=== PATIENT | female | born 1970 | race African-American/Black ===

== ENCOUNTER 2025-02-24 13:50 | Emergency (ER) | payer SELFPAY ==
[2025-02-24] VITALS (19 sets, daily range): BP systolic 150–203; BP diastolic 87–110; PULSE 100–137; RESP 14–27; TEMP 36.6; O2SAT 94–100
--- NOTE | ~2025-02-24 | CT_ITS ---
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 The dose-length product was 556.76 mGy-cm. Maximum intensity projection 3D-reconstructions of the aorta and other arteries were constructed by the technologist on a separate workstation. COMPARISON: None. FINDINGS: No significant pleural or pericardial effusion. Borderline heart size. No thoracic lymphadenopathy. Study is limited due to motion artifact. No large central pulmonary embolism. Evaluation of peripheral pulmonary arteries limited by motion and contrast bolus timing. No endobronchial lesions. Dependent atelectasis. No pneumothorax. No evidence for aortic aneurysm or dissection. Fatty infiltration of the liver. IMPRESSION: 1. No acute cardiopulmonary disease. No large central pulmonary embolism. Evaluation of peripheral pulmonary arteries limited by motion and contrast bolus timing. Reviewed, dictated and finalized at location O. LE LOOM OPERATOR HELPER IMPRESSION: 1. No acute cardiopulmonary disease. No large central pulmonary embolism. Evalu ation of peripheral pulmonary arteries limited by motion and contrast bolus diana ing.
--- OUTSIDE RECORDS SUMMARY | 2025-02-24 16:52 | XMS_ITS ---
Author Organization Unknown ENCOUNTERS Encounter Performer Location Date Diagnosis Diagnosis Status Emergency [facility] [address] [place] [address] [id number] Pre Admit [facility] [address] [place] [address] [phone] *Note: Encounters from your own facility or health system may be excluded. Allergies, Adverse Reactions, Alerts Allergen Type Severity Identification Date Medications Name Date Quantity Days Supplied GPI Number
[2025-02-24 17:12] LABS: Hematocrit 47.0 % (37.0-47.0); Hemoglobin 15.3 g/dL (12.0-15.0); Immature Granulocyte Percent A 0.3 % (0-0.5); Lymphocytes Absolute Auto 3.05 K/mm3 (0.9-3.2); Mean Corpuscular HGB Conc 32.6 g/dl (32-36); Mean Corpuscular Hemoglobin 25.2 pg (26-34); Mean Corpuscular Volume 77.3 fl (80-100); Nucleated Red Blood Cells Absolute Auto 0.000 K/mm3 (0.0-0.012); Nucleated Red Blood Cells Perc 0.0 % (0.0-0.2); Platelet Count Result 347 k/mm3 (150-375); Red Blood Count 6.08 M/mm3 (4.2-5.4); White Blood Count 9.2 K/mm3 (4.5-10.0)
[2025-02-24 17:19] LABS: Add Urine Microscopic? YES; Appearance Urine Clear (Clear); Glucose Urine UA Negative (Negative); Leukocyte Esterase Ur Trace LEU/UL (Negative); Nitrate Urine Negative (Negative); Non Pathogenic Casts 0-2; Specific Grav Ur 1.006 (1.001-1.035)
[2025-02-24 17:23] LABS: Alanine Aminotransferase 41 U/L (6-35); Albumin Level 5.0 g/dL (3.5-5.1); Alkaline Phosphatase 105 U/L (38-126); Anion Gap 12 mmol/L (4-12); Aspartate Amino Transferase 38 U/L (14-36); Bilirubin,Total 0.7 mg/dL (0.2-1.3); Blood Urea Nitrogen 8 mg/dL (7-17); Calcium 10.6 mg/dL (8.4-10.2); Carbon Dioxide 25 mmol/L (22-30); Chloride 100 mmol/L (98-107); Estimated CRCL calculation 74 ml/min; Estimated Glomerular Filt Rate > 60; Glucose 132 mg/dL (65-110); Magnesium 2.2 mg/dL (1.6-2.3); Potassium 4.5 mmol/L (3.4-5.0); Sodium 137 mmol/L (137-145); Total Protein 10.3 g/dL (6.3-8.2)
[2025-02-24 17:50] LABS: Influenza A QL RT-PCR Negative (Negative); Influenza B QL RT-PCR Negative (Negative); RSV RNA, RT-PCR Negative (Negative); SARS-CoV-2 RNA PCR Negative (Negative)
--- NOTE | 2025-02-24 18:23 | ED_ITS ---
HPI - General Adult General Chief complaint: Recheck/Abnormal Lab/Rx <Easton Wharton MD - Last Filed: 02/24/25 20:11> Stated complaint: HTN, lEG PAIN <Easton Wharton MD - Last Filed: 02/24/25 20:11> Time Seen by Provider: 02/24/25 15:59 <Easton Wharton MD - Last Filed: 02/24/25 20:11> History of Present Illness HPI narrative: Patient is a 54-year-old female who presents ER with some leg weakness. His been intermittent over last week. She will be walking and she just feels like her legs are weak. She suspects it may be related to elevated blood pressures. Her blood pressures been 160 mmHg systolic. No chest pain. No fevers chills or sweats. No exertional dyspnea. Denies runny nose or sore throat or productive cough. No known sick contacts. She has no low back pain. No numbness in the lower extremities. No pain in lower extremities. Son is interpreting for the patient. Patient takes amlodipine, HCTZ, lisinopril < Easton Wharton MD - Last Filed: 02/24/25 20:11> Related Data Allergies/adverse reactions: Allergies Allergy/AdvReac Type Severity Reaction Status Date / Time No Known Allergies Allergy Verified 02/24/25 13:57 <Easton Wharton MD - Last Filed: 02/24/25 20:11> Review of Systems 2 Review of Systems: All systems reviewed & are unremarkable except as noted in HPI and below <Easton Wharton MD - Last Filed: 02/24/25 20:11> Constitutional: Constitutional: Reports no additional constitutional complaints <Easton Wharton MD - Last Filed: 02/24/25 20:11> Cardiovascular: Cardiovascular: Reports no additional cardiovascular complaints <Easton Wharton MD - Last Filed: 02/24/25 20:11> Respiratory: Respiratory: Reports no additional respiratory complaints < Easton Wharton MD - Last Filed: 02/24/25 20:11> Gastrointestinal: Gastrointestinal: Reports no additional gastrointestinal complaints <Easton Wharton MD - Last Filed: 02/24/25 20:11> Genitourinary: Genitourinary: Reports no additional female genitourinary complaints <Easton Wharton MD - Last Filed: 02/24/25 20:11> Neurologic: Reports system reviewed and no additional complaints, except as documented <Easton Wharton MD - Last Filed: 02/24/25 20:11> [facility] Past Medical History Medical History: Medical History (Updated 02/24/25 @ 23:29 by Froy Voss MD) Hypertension <Easton Wharton MD - Last Filed: 02/24/25 20:11> Surgical History Surgical History: Surgical History (Updated 02/24/25 @ 18:30 by Easton Wharton MD) No history of previous surgery <Easton Wharton MD - Last Filed: 02/24/25 20:11> Exam 2 Narrative: GENERAL: Well-appearing, well-nourished, and in no acute distress. HEAD: Normocephalic, atraumatic. ENT: Mucous membranes moist. CHEST: Clear to auscultation. No respiratory distress. HEART: Tachycardic and regular. Normal peripheral pulses. ABDOMEN: Soft, nontender, nondistended. EXTREMITIES: Normal range of motion. No edema. SKIN: Warm, dry, no rash. NEURO: Alert and oriented x3. PSYCH: Normal mood and affect. <Easton Wharton MD - Last Filed: 02/24/25 20:11> Course Course Emergency Course: Patient resting comfortably. Informed of blood/urine/viral swab results. Essentially unremarkable. Patient with some mild tachycardia (103 bpm) will receive IV fluid. She has no chest discomfort or palpitations. No pain with deep breath. There is no leg swelling to indicate DVT. Hemoglobin is slightly elevated which could indicate dehydration. 1851: Patient is with sudden onset feeling of leg heaviness. Blood pressure 196/98 mmHg. She also feels like her heart is racing in her heart rate is elevated to 130 beats per minute though it is a sinus rhythm. We will give her some hydralazine for her blood pressure. GABRIELLA to Dr. Voss. <Easton Wharton MD - Last Filed: 02/24/25 20:11> Patient resting comfortably. Informed of blood/urine/viral swab results. Essentially unremarkable. Patient with some mild tachycardia (103 bpm) will receive IV fluid. She has no chest discomfort or palpitations. No pain with deep breath. There is no leg swelling to indicate DVT. Hemoglobin is slightly elevated which could indicate dehydration. 1851: Patient is with sudden onset feeling of leg heaviness. Blood pressure 196/98 mmHg. She also feels like her heart is racing in her heart rate is elevated to 130 beats per minute though it is a sinus rhythm. We will give her some hydralazine for her blood pressure. GABRIELLA to Dr. Voss. Patient signed out to me pending CTA and re-evaluation. CTA is negative for pulmonary embolism pneumothorax or infiltrate as read by Radiology. Patient's heart rate has improved after further IV fluids. She is persistently however in the 100-110. She is in sinus rhythm. Patient denies any weakness, she is neurologically intact. She is requesting to go home, I did recommend hospital admission given the concern for weakness and tachycardia of unclear etiology. I did spend significant time at bedside with the patient and her adult son, expressed my concern answered their questions but they still would like to go home and they will follow up with primary care doctor although the patient is new to the area does not have any establish care. I again expressed my concern with this plan and ultimately she has capacity to make her own decisions and is discharged against medical advice. I instructed her nurse under returns today changed her mind or develops any new or concerning symptoms return immediately for re-evaluation. Otherwise all questions answered discharged in improved condition but serious condition <Froy Voss MD - Last Filed: 02/24/25 23:31> Vital Signs Vital signs: Vital Signs Temperature 36.6 C 02/24/25 13:54 Pulse Rate 121 H 02/24/25 13:54 Respiratory Rate 20 02/24/25 13:54 Blood Pressure 150/100 H 02/24/25 13:54 Pulse Oximetry 100 02/24/25 13:54 Oxygen Delivery Room Air 02/24/25 13:54 Temperature 36.6 C 02/24/25 19:08 Pulse Rate 113 H 02/24/25 21:31 Respiratory Rate 20 02/24/25 21:31 Blood Pressure 151/89 H 02/24/25 21:31 Pulse Oximetry 100 02/24/25 21:31 Oxygen Delivery Room Air 02/24/25 13:54 <Easton Wharton MD - Last Filed: 02/24/25 20:11> Vital Signs Temperature 36.6 C 02/24/25 13:54 Pulse Rate 121 H 02/24/25 13:54 Respiratory Rate 20 02/24/25 13:54 Blood Pressure 150/100 H 02/24/25 13:54 Pulse Oximetry 100 02/24/25 13:54 Oxygen Delivery Room Air 02/24/25 13:54 Temperature 36.6 C 02/24/25 19:08 Pulse Rate 113 H 02/24/25 21:31 Respiratory Rate 20 02/24/25 21:31 Blood Pressure 151/89 H 02/24/25 21:31 Pulse Oximetry 100 02/24/25 21:31 Oxygen Delivery Room Air 02/24/25 13:54 <Froy Voss MD - Last Filed: 02/24/25 23:31> MDM Differential Diagnosis Differential Diagnosis: Dehydration, MJ, sciatica, viral syndrome <Easton Wharton MD - Last Filed: 02/24/25 20:11> Lab Data MDM Lab Attestation statement: I personally reviewed the patient's lab results. <Easton Wharton MD - Last Filed: 02/24/25 20:11> Result diagrams: 02/24/25 17:02 02/24/25 17:02 <Easton Wharton MD - Last Filed: 02/24/25 20:11> Labs: Lab Results 02/24/25 Range/Units 17:02 WBC 9.2 (4.5-10.0) K/mm3 RBC 6.08 H (4.2-5.4) M/mm3 Hgb 15.3 H (12.0-15.0) g/dL Hct 47.0 (37.0-47.0) % MCV 77.3 L (80-100) fl MCH 25.2 L (26-34) pg MCHC 32.6 (32-36) g/dl RDW 14.8 H (11.5-14.5) % Plt Count 347 (150-375) k/mm3 MPV 9.4 (7.4-10.4) fl Immature Gran % (Auto) 0.3 (0-0.5) % Neut % (Auto) 58.2 (45.5-73.1) % Lymph % (Auto) 33.2 (18.3-44.2) % [place] % (Auto) 7.8 (2.6-8.5) % Eos % (Auto) 0.3 (0-4.4) % Baso % (Auto) 0.2 (0.2-1.2) % Lymph # (Auto) 3.05 (0.9-3.2) K/mm3 [place] # (Auto) 0.7 H (0.1-0.6) K/mm3 Eos # (Auto) 0.0 (0-0.3) K/mm3 Baso # (Auto) 0.0 (0.0-0.1) K/mm3 Abs Immat Gran (auto) 0.03 (0.00-0.031) K/mm3 Absolute Neuts (auto) 5.3 (1.3-6.7) K/mm3 Absolute Nucleated RBC 0.000 (0.0-0.012) K/mm3 Nucleated RBC % 0.0 (0.0-0.2) % Sodium 137 (137-145) mmol/L Potassium 4.5 (3.4-5.0) mmol/L Chloride 100 (98-107) mmol/L Carbon Dioxide 25 (22-30) mmol/L Anion Gap 12 (4-12) mmol/L BUN 8 (7-17) mg/dL Creatinine 0.75 (0.7-1.0) mg/dL Estim Creat Clear Calc 74 ml/min Estimated GFR > 60 (59 - ) Glucose 132 H (65-110) mg/dL Calcium 10.6 H (8.4-10.2) mg/dL Magnesium 2.2 (1.6-2.3) mg/dL Total Bilirubin 0.7 (0.2-1.3) mg/dL AST 38 H (14-36) U/L ALT 41 H (6-35) U/L Alkaline Phosphatase 105 (38-126) U/L Total Protein 10.3 H (6.3-8.2) g/dL Albumin 5.0 (3.5-5.1) g/dL TSH (Reflex) 1.730 (0.465-4.68) uIU/mL Urine Color Yellow (Yellow) Urine Appearance Clear (Clear) Urine pH 7.0 (5.0-9.0) Ur Specific [place] 1.006 (1.001-1.035) Urine Protein Negative (Negative) mg/dL Urine Glucose (UA) Negative (Negative) mg/dL Urine Ketones Negative (Negative) mg/dL Ur Blood (Man) Negative (Negative) Urine Nitrate Negative (Negative) Urine Bilirubin Negative (Negative) Urine Urobilinogen 0.2 (<2.0) mg/dL Leukocyte Esterase Rfl Trace H (Negative) PURVI/UL Urine RBC 0-2 (0-2) /hpf Urine WBC 0-5 (0-3) /hpf Ur Squamous Epith Cells None seen (Few) /hpf Urine Bacteria None seen /hpf Urine Casts 0-2 Influenza A (RT-PCR) Negative (Negative) Influenza B (RT-PCR) Negative (Negative) RSV (RT-PCR) Negative (Negative) SARS-CoV-2 RNA (RT-PCR) Negative (Negative) <Easton Wharton MD - Last Filed: 02/24/25 20:11> Lab Results 02/24/25 Range/Units 17:02 WBC 9.2 (4.5-10.0) K/mm3 RBC 6.08 H (4.2-5.4) M/mm3 Hgb 15.3 H (12.0-15.0) g/dL Hct 47.0 (37.0-47.0) % MCV 77.3 L (80-100) fl MCH 25.2 L (26-34) pg MCHC 32.6 (32-36) g/dl RDW 14.8 H (11.5-14.5) % Plt Count 347 (150-375) k/mm3 MPV 9.4 (7.4-10.4) fl Immature Gran % (Auto) 0.3 (0-0.5) % Neut % (Auto) 58.2 (45.5-73.1) % Lymph % (Auto) 33.2 (18.3-44.2) % [place] % (Auto) 7.8 (2.6-8.5) % Eos % (Auto) 0.3 (0-4.4) % Baso % (Auto) 0.2 (0.2-1.2) % Lymph # (Auto) 3.05 (0.9-3.2) K/mm3 [place] # (Auto) 0.7 H (0.1-0.6) K/mm3 Eos # (Auto) 0.0 (0-0.3) K/mm3 Baso # (Auto) 0.0 (0.0-0.1) K/mm3 Abs Immat Gran (auto) 0.03 (0.00-0.031) K/mm3 Absolute Neuts (auto) 5.3 (1.3-6.7) K/mm3 Absolute Nucleated RBC 0.000 (0.0-0.012) K/mm3 Nucleated RBC % 0.0 (0.0-0.2) % Sodium 137 (137-145) mmol/L Potassium 4.5 (3.4-5.0) mmol/L Chloride 100 (98-107) mmol/L Carbon Dioxide 25 (22-30) mmol/L Anion Gap 12 (4-12) mmol/L BUN 8 (7-17) mg/dL Creatinine 0.75 (0.7-1.0) mg/dL Estim Creat Clear Calc 74 ml/min Estimated GFR > 60 (59 - ) Glucose 132 H (65-110) mg/dL Calcium 10.6 H (8.4-10.2) mg/dL Magnesium 2.2 (1.6-2.3) mg/dL Total Bilirubin 0.7 (0.2-1.3) mg/dL AST 38 H (14-36) U/L ALT 41 H (6-35) U/L Alkaline Phosphatase 105 (38-126) U/L Total Protein 10.3 H (6.3-8.2) g/dL Albumin 5.0 (3.5-5.1) g/dL TSH (Reflex) 1.730 (0.465-4.68) uIU/mL Urine Color Yellow (Yellow) Urine Appearance Clear (Clear) Urine pH 7.0 (5.0-9.0) Ur Specific [place] 1.006 (1.001-1.035) Urine Protein Negative (Negative) mg/dL Urine Glucose (UA) Negative (Negative) mg/dL Urine Ketones Negative (Negative) mg/dL Ur Blood (Man) Negative (Negative) Urine Nitrate Negative (Negative) Urine Bilirubin Negative (Negative) Urine Urobilinogen 0.2 (<2.0) mg/dL Leukocyte Esterase Rfl Trace H (Negative) PURVI/UL Urine RBC 0-2 (0-2) /hpf Urine WBC 0-5 (0-3) /hpf Ur Squamous Epith Cells None seen (Few) /hpf Urine Bacteria None seen /hpf Urine Casts 0-2 Influenza A (RT-PCR) Negative (Negative) Influenza B (RT-PCR) Negative (Negative) RSV (RT-PCR) Negative (Negative) SARS-CoV-2 RNA (RT-PCR) Negative (Negative) <Froy Voss MD - Last Filed: 02/24/25 23:31> Discharge Plan Discharge Clinical Impression: Generalized weakness, Hypertension <Easton Wharton MD - Last Filed: 02/24/25 20:11> Patient Disposition: Home <Easton Wharton MD - Last Filed: 02/24/25 20:11> Condition: Improved <Easton Wharton MD - Last Filed: 02/24/25 20:11> Instructions: Weakness (ED), Hypertension (ED) <Easton Wharton MD - Last Filed: 02/24/25 20:11> Additional Instructions: Return the ER if you have chest pain shortness of breath, you cannot keep down food water, you develop fever over 100.4? F, or you have additional concerns. <Easton Wharton MD - Last Filed: 02/24/25 20:11> Patient Language: Kyrgyz <Easton Wharton MD - Last Filed: 02/24/25 20:11> Prescriptions: New zolpidem [Ambien] 5 mg tablet 5 mg PO HS 3 Days Qty: 3 0RF <Easton Wharton MD - Last Filed: 02/24/25 20:11> Follow-up/Referrals: London Ibarra MD [Physician, Family Practice] - 3 Days <Easton Wharton MD - Last Filed: 02/24/25 20:11> Time of Disposition: 23:29 <Easton Wharton MD - Last Filed: 02/24/25 20:11> 23:29 <Froy Voss MD - Last Filed: 02/24/25 23:31>
[2025-02-24] MEDS: SODIUM CHLORIDE 0.9% IV 1,000 ML 999 ML IV CONT (18:34)
[2025-02-24 19:42] LABS: Thyroid Stimulating Hormone Reflex 1.730 uIU/mL (0.465-4.68)
[2025-02-24] MEDS: SODIUM CHLORIDE 0.9% IV 500 ML 999 ML IV CONT (20:40)
[2025-02-24] MEDS: ZOLPIDEM TARTRATE (*CRX) 2.5 MG TABLET PO (23:51)
== END 2025-02-24 23:59 | disposition home or self-care (01) ==
PROVIDERS: Emergency Medicine; Emergency Provider Emergency Medicine
DX: R53.1 Weakness (principal); I10 Essential (primary) hypertension; Z20.822 Contact with and (suspected) exposure to COVID-19
CPT/HCPCS: 36415; 71275; 80053; 81001; 83735; 84443; 85025; 87637; 96361; 96374; 99284; A9270; J0360; J7030; J7040; Q9967